=== PATIENT | female | born 1980 | race Caucasian/White ===

== ENCOUNTER → 2023-01-07 | Outpatient (CLI) | payer BC ==
[~2023-01-07] MED LIST: MULT1TAB8 PO; PROAAER10 INH; SYMB16INH INH; ZANT150T40 PO
[2023-01-07 16:20] LABS: APPEARANCE, CSF CLEAR (CLEAR); COLOR, CSF COLORLESS (COLORLESS); CSF TUBE# CELL CNT TUBE 1
[2023-01-07 16:45] VITALS: BP 134/63
[2023-01-07 16:54] LABS: CSF TUBE# TP TUBE 1
[2023-01-07 16:57] LABS: CSF TUBE# GLU TUBE 1
== END ==
LOC: M IRPRO 13:10
PROVIDERS: ATTEND Psychiatry & Neurology Neurology
DX: G35 Multiple sclerosis (principal)